=== PATIENT | female | born 2000 | race Two or more races ===

== ENCOUNTER 2024-05-17 15:48 | Emergency (ER) | payer OTHER ==
[~2024-05-17] VITALS: Ht 175.3 cm; Wt 102.1 kg
[2024-05-17] MEDS ORDERED: PRENATABS FA T1 EACH (15:58)
[2024-05-17] MEDS ORDERED: ZOFRAN8 MG (15:58)
[2024-05-17] MEDS ORDERED: 0.9 % SODIUM CHLORIDE 1,000 ML IV SCH (16:15)
[2024-05-17] MEDS ORDERED: METOCLOPRAMIDE HCL 10 MG in DEXTROSE 5 % IN WATER 50 ML IV ONE (16:15)
[2024-05-17] MEDS ORDERED: FAMOTIDINE/PF 20 MG in 0.9 % SODIUM CHLORIDE 8 ML IV PUSH STA (16:15)
[2024-05-17 16:53] LABS: HEMATOCRIT 40.9 % (36.0-45.00); HEMOGLOBIN 14.3 g/dL (12.0-15.00); MEAN CELL VOLUME 90.8 fL (80.00-100.00); MEAN CORPUSCULAR HEMOGLOBIN 31.8 pg (27.00-32.0); PLATELET COUNT 279 K/uL (150-450); RED BLOOD COUNT 4.51 M/uL (4.00-6.00); RED CELL DISTRIBUTION WIDTH 12.1 % (11.5-14.5)
[2024-05-17 17:28] LABS: PH,URINE 5.5 (5.0-8.0); URINE APPEARANCE Clear; URINE BILIRRUBIN Negative (NEGATIVE); URINE BLOOD Negative; URINE COLOR Yellow; URINE GLUCOSE Negative (NEGATIVE); URINE LEUKOCYTE Negative; URINE NITRATE Negative; URINE PROTEIN Trace (NEGATIVE)
[2024-05-17 17:32] LABS: URINE BACTERIA 354.9 uL (0.0-1933); URINE EPITHELIAL CELLS 9.9 uL (0.0-38.8); URINE RBC 6.1 uL (0.0-20.8); URINE WBC 15.4 uL (0.0-23.2)
[2024-05-17 17:37] LABS: URINE CAST 0.88 uL (0.0-1.40); URINE KETONE 80 (NEGATIVE)
[2024-05-17] MEDS ORDERED: ONDANSETRON ODT8 MG PO (19:10)
[2024-05-17] MEDS ORDERED: ONDANSETRON HCL 2 MG/ML VIAL IV ONE (19:30)
== END 2024-05-17 19:51 | disposition home or self-care (01) ==
LOC: ER 15:51
PROVIDERS: General Practice
DX: O21.0 Mild hyperemesis gravidarum (principal); O26.891 Other specified pregnancy related conditions, first trimester; R10.2 Pelvic and perineal pain; Z3A.08 8 weeks gestation of pregnancy

== ENCOUNTER 2024-08-05 10:48 | Outpatient (CLI) | payer OTHER ==
[~2024-08-05 10:48] MED LIST: ONDANSETRON ODT8 MG PO; PRENATABS FA T1 EACH; ZOFRAN8 MG
== END 2024-08-05 10:49 | disposition home or self-care (01) ==
LOC: PRENATAL 10:48
PROVIDERS: ATTEND Obstetrics & Gynecology Maternal & Fetal Medicine
DX: O44.00 Complete placenta previa NOS or without hemorrhage, unspecified trimester (principal); Z3A.19 19 weeks gestation of pregnancy

== ENCOUNTER 2024-10-28 14:43 | Outpatient (CLI) | payer OTHER | END 2024-10-28 14:44 | disposition home or self-care (01) | LOC: PRENATAL 14:43 | PROVIDERS: ATTEND Obstetrics & Gynecology Maternal & Fetal Medicine | DX: O26.849 Uterine size-date discrepancy, unspecified trimester (principal); O36.8199 Decreased fetal movements, unspecified trimester, other fetus; Z3A.32 32 weeks gestation of pregnancy ==

== ENCOUNTER → 2024-11-25 10:22 | Outpatient (CLI) | payer OTHER | END | disposition home or self-care (01) | LOC: PRENATAL 10:22 | PROVIDERS: ATTEND Obstetrics & Gynecology Maternal & Fetal Medicine | DX: O26.849 Uterine size-date discrepancy, unspecified trimester (principal); O36.8130 Decreased fetal movements, third trimester, not applicable or unspecified; Z3A.34 34 weeks gestation of pregnancy ==

== ENCOUNTER 2024-12-08 08:08 | Inpatient (IN) | payer OTHER ==
[~2024-12-08] VITALS: Ht 175.3 cm; Wt 2.3 kg
[2024-12-08 08:33] VITALS: BP 112/74
[2024-12-08] MEDS ORDERED: RINGERS SOLUTION,LACTATED 1,000 ML IV SCH ×2 (09:15→15:00)
[2024-12-08 10:16] LABS: URINE APPEARANCE Clear; URINE BILIRRUBIN Negative (NEGATIVE); URINE BLOOD Negative; URINE COLOR Yellow; URINE GLUCOSE Negative (NEGATIVE); URINE KETONE Negative (NEGATIVE); URINE LEUKOCYTE Small; URINE NITRATE Negative; URINE PROTEIN 30 (NEGATIVE); URINE UROBILINOGEN 1.0 E.U./dl
[2024-12-08 10:19] LABS: URINE BACTERIA 5612.2 uL (0.0-1933); URINE CAST 1.90 uL (0.0-1.40); URINE EPITHELIAL CELLS 40.4 uL (0.0-38.8); URINE RBC 5.1 uL (0.0-20.8); URINE WBC 47.5 uL (0.0-23.2)
[2024-12-08] MEDS ORDERED: CITRIC ACID/SODIUM CITRATE 30 ML BLIST.PACK PO ONE ×2 (10:40→11:00)
[2024-12-08 11:08] LABS: URINE YEAST NEGATIVE /hpf
[2024-12-08 11:18] LABS: BASO % 0.2 % (0.1-1.2); EOS # 0.01 (0.04-0.54); EOS % 0.1 % (0.7-7.0); LYMPH # 1.48 (1.18-3.74); LYMPH % 13.8 % (19.3-53.1); MEAN PLATELET VOLUME 11.70 fl (9.4-12.4); MONO # 0.69 (0.24-0.82); MONO % 6.4 % (4.7-12.5); NEUT # 8.46 (1.56-6.13); NEUT % 79.0 % (34.0-71.1); RED CELL DISTRIBUTION WIDTH 11.5 % (11.6-14.4)
[2024-12-08 11:39] LABS: INR 0.97
[2024-12-08 12:36] VITALS: BP 110/70
[2024-12-08] MEDS ORDERED: OXYTOCIN 10 UNITS/ML VIAL ONE (12:57)
[2024-12-08] MEDS ORDERED: ERYTHROMYCIN BASE OPHT 1GM EACH TUBE OP ONE (12:58)
[2024-12-08] MEDS ORDERED: KETOROLAC TROMETHAMINE 60 MG VIAL IM STA (14:59)
[2024-12-08] MEDS ORDERED: OXYTOCIN 1,000 ML IV SCH (15:00)
[2024-12-08] MEDS ORDERED: CHLORHEXIDINE GLUCONATE 120 ML BOTTLE TOP SCH (15:00)
[2024-12-08 16:55] LABS: BASO % 0.2 % (0.1-1.2); EOS # 0.01 (0.04-0.54); EOS % 0.1 % (0.7-7.0); LYMPH # 1.55 (1.18-3.74); LYMPH % 12.4 % (19.3-53.1); MEAN PLATELET VOLUME 11.80 fl (9.4-12.4); MONO # 0.67 (0.24-0.82); MONO % 5.4 % (4.7-12.5); NEUT # 10.16 (1.56-6.13); NEUT % 81.3 % (34.0-71.1); RED CELL DISTRIBUTION WIDTH 11.6 % (11.6-14.4)
[2024-12-08] MEDS ORDERED: MORPHINE SULFATE 4 MG/ML CARTRIDGE IV PRN (18:45)
[2024-12-08] MEDS ORDERED: PROMETHAZINE HCL 25 MG/ML AMPUL IV PRN (19:30)
[2024-12-08 21:28] VITALS: BP 121/76
[2024-12-09 00:15] VITALS: BP 133/76
[2024-12-09 08:00] VITALS: BP 108/67
[2024-12-09] MEDS ORDERED: ACETAMINOPHEN 325 MG TABLET PO PRN (09:00)
[2024-12-09] MEDS ORDERED: OxyCODONE HCL 5 MG TABLET (ROXICODONE) PO PRN (09:00)
[2024-12-09 17:17] VITALS: BP 114/72
[2024-12-10 00:14] VITALS: BP 108/72
[2024-12-10 08:16] VITALS: BP 103/67
[2024-12-10 13:06] VITALS: BP 105/71
[2024-12-10 16:22] VITALS: BP 120/78
[2024-12-10 20:52] VITALS: BP 123/80
[2024-12-11] VITALS: BP 119/76
[2024-12-11 08:07] VITALS: BP 111/69
== END 2024-12-11 11:25 | disposition home or self-care (01) | DRG 788 ==
LOC: LDR 08:08 → OB/GYN 08:08 → LDR 08:48 → O/R 14:39 → OB/GYN 15:53
PROVIDERS: ADMIT Obstetrics & Gynecology; ATTEND Obstetrics & Gynecology
PROC: 4A1HXCZ Monitoring of Products of Conception, Cardiac Rate, External Approach (ICD-10-PCS; 2024-12-08)
PROC: 10D00Z1 Extraction of Products of Conception, Low, Open Approach (ICD-10-PCS; principal; 2024-12-08 12:30)
DX: O36.5930 Maternal care for other known or suspected poor fetal growth, third trimester, not applicable or unspecified (principal); Z3A.38 38 weeks gestation of pregnancy; Z37.0 Single live birth